=== PATIENT | male | born 1960 | race Caucasian/White ===

== ENCOUNTER 2020-12-18 15:14 | Emergency (ER) | payer MEDICARE, SELFPAY ==
[2020-12-18 15:42] VITALS: BP 107/77; PULSE 121; RESP 22; TEMP 36.9; O2SAT 94; BMI 33.7
[2020-12-18 15:46] VITALS: BP 129/101; PULSE 114; RESP 20; O2SAT 96
[2020-12-18 16:46] VITALS: BP 123/93; PULSE 119; RESP 18; O2SAT 96
[2020-12-18 16:49] VITALS: RESP 18
[2020-12-18] MEDS: morphine 4 mg/mL SDV 1 mL 8 MG IM (16:49)
[2020-12-18] MEDS: neomycin-poly-bacitracin oint 28 gm 1 APPLIC TOPICAL (16:50)
[2020-12-18 17:55] VITALS: BP 123/93; PULSE 100; RESP 18; TEMP 37.2; O2SAT 95
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
== END 2020-12-18 17:59 | disposition left against medical advice (07) ==
PROVIDERS: Emergency Provider Family Medicine
DX: T24.091A Burn of unspecified degree of multiple sites of right lower limb, except ankle and foot, initial encounter (principal); T24.092A Burn of unspecified degree of multiple sites of left lower limb, except ankle and foot, initial encounter; X10.2XXA Contact with fats and cooking oils, initial encounter
CPT/HCPCS: 96372; 99283; J2270